=== PATIENT | male | born 1970 | race Caucasian/White ===

== ENCOUNTER 2016-11-15 20:21 | Inpatient (IN) | payer OTHER, BC ==
[~2016-11-15] VITALS: Ht 170.2 cm; Wt 99.6 kg
[~2016-11-15 20:21] MED LIST: APIDRA100 UNIT/1 SC; CLARITIN10 MG PO; DILANTIN100 MG PO; LEVOTHYROXINE25 MCG PO; LISINOPRIL5 MG PO; PRAVACHOL20 MG PO; VITAMIN D2000 INTUN PO
[2016-11-15 20:34] LABS: BASOPHIL COUNT 0.1 K/uL (0-0.1); EOSINOPHIL (%) 1.4 % (0-5); EOSINOPHIL COUNT 0.1 K/uL (0-0.3); HEMATOCRIT 44.6 % (38.0-50.0); IMMATURE GRANULOCYTE (%) 0.4 % (0.0-0.7); INSTRUMENT ABS NEUTROPHIL CT 6.7 K/uL; LYMPHOCYTE COUNT 1.8 K/uL (1.0-2.8); MCH 31.5 PG (29.0-34.0); MCHC 34.1 G/DL (30.0-36.0); MCV 92.5 FL (86-99); MEAN PLAT.VOLUME 9.9 uM^3 (9.0-12.4); MONOCYTE (%) 5.2 % (3-12); MONOCYTE COUNT 0.5 K/uL (0-0.8); NEUTROPHIL (%) 73.3 % (45-76); NEUTROPHIL COUNT 6.7 K/uL (1.8-6.4); PLATELET COUNT 196 K/uL (156-360); RBC DIS.WIDTH-SD 37.9 % (39-53); RED BLOOD COUNT 4.82 M/uL (4.00-5.50); WHITE BLOOD COUNT 9.1 K/uL (4.1-10.2)
[2016-11-15 20:44] LABS: AMYLASE 92 IU/L (1-118); CHLORIDE 106 mEq/L (99-109); POTASSIUM 3.8 mEq/L (3.7-5.4); SODIUM 140 mEq/L (136-147)
[2016-11-15 20:45] LABS: GLUCOSE 101 mg/dL (70-99)
[2016-11-15 20:47] LABS: ANION GAP 17 MEQ/L (2-14)
[2016-11-15 20:49] LABS: GFR ESTIMATE (CALCULATED) > 59 mL/min/; SERUM ETHYL ALCOHOL < 10 mg/dL
[2016-11-15 20:50] LABS: UREA NITROGEN (BUN) 16 mg/dL (9-23)
[2016-11-15 20:52] LABS: LIPASE 15 U/L (1.0-51.0)
[2016-11-15 22:28] LABS: SAMPLE HEMOLYSIS CHECK 0; SAMPLE ICTERIC CHECK 0; SAMPLE LIPEMIA CHECK 0
[2016-11-15] MEDS ORDERED: OXTELLAR XR600 MG PO (23:38)
[2016-11-15] MEDS ORDERED: LEVOTHYROXINE50 MCG PO (23:39)
[2016-11-15] MEDS ORDERED: PROAIR HFA8.5 GM IH (23:55)
[2016-11-16] VITALS (8 sets, daily range): BP systolic 132–164; BP diastolic 70–87
[2016-11-16 00:53] LABS: ALKALINE PHOSPHATASE 76 IU/L (3-129); CREATINE KINASE 291 IU/L (1-294); DIRECT BILIRUBIN 0.1 mg/dL (0.0-0.3); TOTAL BILIRUBIN 0.3 MG/DL (0.0-1.0)
[2016-11-16 00:57] LABS: AMPHETAMINE NEGATIVE (500 ng/mL); BARBITURATES NEGATIVE (200 ng/mL); BENZODIAZEPINES NEGATIVE (150 ng/mL); COCAINE NEGATIVE (150 ng/mL); METHADONE NEGATIVE (200 ng/mL); METHAMPHETAMINE NEGATIVE (500 ng/mL); OPIATES (MORPHINE) PRESUMPTIVE POSITIVE (100 ng/mL); OXYCODONE NEGATIVE (100 ng/mL); PHENCYCLIDINE NEGATIVE (25 ng/mL); PROPOXYPHENE NEGATIVE (300 ng/mL); THC CANNABINOIDS NEGATIVE (50 ng/mL); TRICYCLIC ANTIDEPRESSANTS NEGATIVE (300 ng/mL)
[2016-11-16 00:58] LABS: ADD MEDTOX COMMENT Y; INTERNAL CONTROLS VALID? YES
[2016-11-16 01:01] LABS: ADD MIUA? NO; BILIRUBIN NEGATIVE; BLOOD NEGATIVE; COLOR STRAW ((YELLOW)); GLUCOSE (STRIP) NEGATIVE; KETONES 5; LEUKOCYTES NEGATIVE; NITRITE NEGATIVE; PROTEIN (STRIP) NEGATIVE; UCUL ADDED? NO; UROBILINOGEN 0.2 MG/DL (0.2-1.0)
[2016-11-16 01:10] LABS: SPECIFIC GRAVITY 1.067 (1.000-1.030)
[2016-11-16 06:31] LABS: POINT-OF-CARE METER ID UU14208753
[2016-11-16 06:44] LABS: HEMATOCRIT 41.1 % (38.0-50.0); MCH 32.3 PG (29.0-34.0); MCHC 34.1 G/DL (30.0-36.0); MCV 94.9 FL (86-99); MEAN PLAT.VOLUME 10.4 uM^3 (9.0-12.4); PLATELET COUNT 163 K/uL (156-360); RBC DIS.WIDTH-CV 11.5 % (11.8-14.6); RBC DIS.WIDTH-SD 39.8 % (39-53); RED BLOOD COUNT 4.33 M/uL (4.00-5.50); WHITE BLOOD COUNT 8.5 K/uL (4.1-10.2)
[2016-11-16 07:08] LABS: ANION GAP 11 MEQ/L (2-14); CHLORIDE 104 MEQ/L (99-109); GFR ESTIMATE (CALCULATED) > 59 mL/min/; SAMPLE HEMOLYSIS CHECK 0; SAMPLE ICTERIC CHECK 0; SAMPLE LIPEMIA CHECK 0; SODIUM 136 MEQ/L (136-147); UREA NITROGEN (BUN) 15 mg/dL (9-23)
[2016-11-16 07:11] LABS: GLUCOSE 204 mg/dL (70-99)
[2016-11-16 12:50] LABS: POINT-OF-CARE METER ID UU14208753
[2016-11-16 21:40] LABS: POINT-OF-CARE METER ID UU14208753
[2016-11-17 04:18] VITALS: BP 158/99
[2016-11-17 06:43] LABS: POINT-OF-CARE METER ID UU14149397
[2016-11-17 07:22] LABS: HEMATOCRIT 38.6 % (38.0-50.0); MCH 33.1 PG (29.0-34.0); MCV 94.6 FL (86-99); MEAN PLAT.VOLUME 10.3 uM^3 (9.0-12.4); PLATELET COUNT 156 K/uL (156-360); RBC DIS.WIDTH-CV 11.4 % (11.8-14.6); RBC DIS.WIDTH-SD 39.6 % (39-53); RED BLOOD COUNT 4.08 M/uL (4.00-5.50); WHITE BLOOD COUNT 7.2 K/uL (4.1-10.2)
[2016-11-17 08:06] LABS: ALKALINE PHOSPHATASE 65 IU/L (3-129); ANION GAP 9 MEQ/L (2-14); CHLORIDE 103 MEQ/L (99-109); GFR ESTIMATE (CALCULATED) > 59 mL/min/; SAMPLE HEMOLYSIS CHECK 0; SAMPLE ICTERIC CHECK 0; SAMPLE LIPEMIA CHECK 0; SODIUM 139 MEQ/L (136-147); UREA NITROGEN (BUN) 12 mg/dL (9-23)
[2016-11-17 08:09] VITALS: BP 151/77
[2016-11-17 08:09] LABS: GLUCOSE 88 mg/dL (70-99); TOTAL BILIRUBIN 0.5 MG/DL (0.0-1.0)
[2016-11-17 13:13] VITALS: BP 142/97
[2016-11-17 13:45] VITALS: BP 156/90
[2016-11-17 14:07] LABS: POINT-OF-CARE METER ID UU14208753
[2016-11-17 16:47] VITALS: BP 149/89
[2016-11-17 16:51] LABS: POINT-OF-CARE METER ID UU14149397
[2016-11-17 19:25] VITALS: BP 137/71
[2016-11-18 03:59] VITALS: BP 141/86
[2016-11-18 06:56] LABS: POINT-OF-CARE METER ID UU14208753
[2016-11-18 07:38] VITALS: BP 136/86
[2016-11-18 08:16] LABS: POINT-OF-CARE METER ID UU14149397
[2016-11-18 11:47] LABS: POINT-OF-CARE METER ID UU14208753
[2016-11-18 11:52] VITALS: BP 155/91
[2016-11-18 15:33] VITALS: BP 132/93
[2016-11-18 17:15] LABS: POINT-OF-CARE METER ID UU14208753
[2016-11-18 19:38] VITALS: BP 132/89
[2016-11-18 23:39] VITALS: BP 137/78
[2016-11-19 06:47] LABS: POINT-OF-CARE METER ID UU14149397
[2016-11-19 07:26] VITALS: BP 133/84
[2016-11-19] MEDS ORDERED: LEVETIRACETAM500 MG PO (08:44)
[2016-11-19 12:08] LABS: POINT-OF-CARE METER ID UU14208753
[2016-11-19] MEDS ORDERED: MORPHINE SULFAT15 MG PO (15:35)
== END 2016-11-19 16:50 | disposition home or self-care (01) | DRG 563 ==
LOC: TRA 20:21 → EDOF 23:53 → 3EAST 23:53
PROVIDERS: Emergency Medicine; Surgery
DX: S92.101A Unspecified fracture of right talus, initial encounter for closed fracture (principal); S06.0X9A Concussion with loss of consciousness of unspecified duration, initial encounter; I10 Essential (primary) hypertension; S82.401A Unspecified fracture of shaft of right fibula, initial encounter for closed fracture; S01.81XA Laceration without foreign body of other part of head, initial encounter; S82.891A Other fracture of right lower leg, initial encounter for closed fracture; G40.909 Epilepsy, unspecified, not intractable, without status epilepticus; E03.9 Hypothyroidism, unspecified; E11.9 Type 2 diabetes mellitus without complications; E78.5 Hyperlipidemia, unspecified; G47.31 Primary central sleep apnea; J32.4 Chronic pansinusitis; J45.909 Unspecified asthma, uncomplicated; S92.102A Unspecified fracture of left talus, initial encounter for closed fracture; S92.211A Displaced fracture of cuboid bone of right foot, initial encounter for closed fracture; Z68.34 Body mass index [BMI] 34.0-34.9, adult; Z79.4 Long term (current) use of insulin; Z83.3 Family history of diabetes mellitus; Z96.41 Presence of insulin pump (external) (internal); R41.3 Other amnesia; S92.002A Unspecified fracture of left calcaneus, initial encounter for closed fracture; S92.001A Unspecified fracture of right calcaneus, initial encounter for closed fracture; V47.5XXA Car driver injured in collision with fixed or stationary object in traffic accident, initial encounter; S82.892A Other fracture of left lower leg, initial encounter for closed fracture; S00.83XA Contusion of other part of head, initial encounter; E66.3 Overweight; S01.111A Laceration without foreign body of right eyelid and periocular area, initial encounter
CPT/HCPCS: 70450; 71260; 72125; 72129; 72132; 73030; 73110; 73130; 73600; 73610; 73630; 73700; 74177; 80048; 80053; 80076; 80185; 81003; 82150; 82550; 82948; 83690; 84999; 85025; 85027; 86900; 86901; 93306; 94760; 95819; 97530 GP; 99202; 99281; 99285; G0480; J0690; J1170; J1644; J1815; J1953; J2270; J3010; J7030; J7050